=== PATIENT | female | born 1990 | race Caucasian/White ===

== ENCOUNTER 2017-02-09 15:26 | Outpatient (CLI) | payer SELFPAY ==
--- NOTE | 2017-02-09 17:40 | DIAGNOSTIC IMAGING REPORT ---
PROCEDURE: US COMPLETE PELVIC W/TRANSVAG INDICATION: PELVIC PAIN TECHNIQUE: Transabdominal and endovaginal porter scale and color Doppler sonographic images of the female pelvis were obtained. COMPARISON: OB ultrasound dated 08/12/2016 FINDINGS: TRANSABDOMINAL SCANS: The uterus is of normal size 5.5 x 4.2 x 5.8 cm Kidneys are normal. TRANSVAGINAL SCANS: The uterus is anteverted. Myometrium is normal. The endometrium measures 9.2 mm. Right ovary is normal measuring 2.5 x 1.2 x 1.8 cm The left ovary is normal measuring 4.0 x 1.4 x 3.2 cm IMPRESSION: 1. Normal uterus and ovaries and kidneys. No masses or lesions seen.
== END 2017-02-09 23:00 ==
LOC: LAB SRH 15:26 → US SRH 15:26
DX: N96 Recurrent pregnancy loss (principal)
CPT/HCPCS: 90074; 90648; 91023; 93140